=== PATIENT | male | born 1965 | race Caucasian/White ===

== ENCOUNTER → 2018-04-14 | Outpatient (REF) | payer MEDICARE, OTHER | LOC: M LAB REF 12:50 | DX: Z79.899 Other long term (current) drug therapy (principal); C02.9 Malignant neoplasm of tongue, unspecified | CPT/HCPCS: 84443 ==

== ENCOUNTER → 2021-11-13 | Outpatient (REF) | payer MEDICARE, OTHER ==
[~2021-11-13] MED LIST: LANS15CA PO; OSMOLIQ; OSMOLIQ PO; [UNRECOGNIZED DRUG - CODE] PO; [UNRECOGNIZED DRUG - CODE] PO; [UNRECOGNIZED DRUG - CODE] XX
== END ==
LOC: M LAB REF 16:18
PROVIDERS: ATTEND Registered Nurse
DX: E78.2 Mixed hyperlipidemia (principal)

== ENCOUNTER → 2022-01-01 | Outpatient (REF) | payer MEDICARE, OTHER ==
[2022-01-03 05:07] LABS: LDL DIRECT 97 mg/dL (0-99)
== END ==
LOC: M LAB REF 16:23
PROVIDERS: ATTEND Registered Nurse
DX: E78.2 Mixed hyperlipidemia (principal)

== ENCOUNTER → 2022-08-25 | Outpatient (CLI) | payer MEDICARE, OTHER | LOC: M RAD 08:27 | PROVIDERS: ATTEND Physician Assistant | DX: I65.23 Occlusion and stenosis of bilateral carotid arteries (principal) ==

== ENCOUNTER → 2022-11-12 | Outpatient (REF) | payer MEDICARE, OTHER ==
[2022-11-14 08:09] LABS: LDL DIRECT 87 mg/dL (0-99)
== END ==
LOC: M LAB REF 16:22
PROVIDERS: ATTEND Internal Medicine
DX: E78.2 Mixed hyperlipidemia (principal)

== ENCOUNTER → 2023-09-29 | Outpatient (CLI) | payer MEDICARE, OTHER | LOC: M RAD 10:52 | PROVIDERS: ATTEND Physician Assistant | DX: I65.22 Occlusion and stenosis of left carotid artery (principal) ==

== ENCOUNTER → 2024-10-03 | Outpatient (CLI) | payer MEDICARE, OTHER | LOC: M RAD 10:31 | PROVIDERS: ATTEND Physician Assistant | DX: I65.23 Occlusion and stenosis of bilateral carotid arteries (principal) ==

== ENCOUNTER → 2025-05-10 | Outpatient (CLI) | payer MEDICARE, OTHER ==
[~2025-05-10] MED LIST changes: +PERI12LIQ
[2025-05-10 12:08] LABS: CREATININE FOR GFR 0.91 MG/DL (0.70-1.30); GLOMERULAR FILTRATION RATE > 90.0 (>49)
== END ==
LOC: M LAB 10:01
PROVIDERS: ATTEND Psychiatry & Neurology Neurology
DX: I10 Essential (primary) hypertension (principal)

== ENCOUNTER → 2025-10-04 | Outpatient (CLI) | payer MEDICARE, OTHER | LOC: M RAD 15:31 | PROVIDERS: ATTEND Physician Assistant | DX: I65.23 Occlusion and stenosis of bilateral carotid arteries (principal) ==